=== PATIENT | female | born 2000 | race African-American/Black ===

== ENCOUNTER 2018-04-11 04:11 | Emergency (ER) | payer OTHER ==
[2018-04-11] MEDS ORDERED: Nicotine Inhaler* 10 MG AMP INH PRN (04:48)
[2018-04-11] MEDS ORDERED: LORazepam TAB(*) 1 MG PO ONE (04:49)
[2018-04-11 05:03] LABS: ABS Basophils 0 10^3/ul (0-0.2); ABS Eosinophils 0 10^3/ul (0-0.6); ABS Lymphocytes 1.2 10^3/ul (1.0-4.8); ABS Monocytes 0.3 10^3/ul (0-0.8); ABS Neutrophils 4.5 10^3/ul (1.5-7.7); ABS Nucleated RBC 0 10^3/ul; Eosinophil % 0.1 %; Hematocrit 41 % (35-47); Hemoglobin 13.3 g/dl (12.0-16.0); Lymphocyte % 20.2 %; Mean Corpuscular HGB Conc 33 g/dl (31-36); Mean Corpuscular Hemoglobin 29 pg (27-31); Mean Corpuscular Volume 89 fL (80-97); Mean Platelet Volume 8.4 fL (7.4-10.4); Nucleated Red Blood Cells % 0.1; Platelet Count 201 10^3/ul (150-450); Red Blood Count 4.56 10^6/ul (4.00-5.40); Red Cell Distribution Width 14 % (10.5-15)
[2018-04-11 05:19] LABS: EGFR Non-African American 79.6 (>60)
[2018-04-11 05:36] LABS: Urine Appearance Clear; Urine Blood 3+ (Negative); Urine Color Yellow; Urine Ketones Negative (Negative); Urine Protein Negative (Negative); Urine Red Blood Cell Trace(0-2/hpf) (Absent); Urine Urobilinogen Negative (Negative); Urine White Blood Cell 1+(6-10/hpf) (Absent)
--- NOTE | 2018-04-11 06:34 | ED ---
Psychiatric Complaint - HPI Summary HPI Summary: The pt is a 17 y.o female who is presenting to the [facility] with chief complaint of anxiety. The anxiety is reportedly exacerbated by domestic issues as per patient report. She states to the police that she was not sure if she would be able to make it through the night due to her conflict with her ex-boyfriend. She requested an escort to the [facility]. She denies SI and HI. PMHX includes depression and anxiety. She also has never been admitted to a psychiatric facility. Symptoms alleviated by nothing. - History Of Current Complaint Chief Complaint: EDMentalHealth Time Seen by Provider: 04/11/18 04:25 Hx Obtained From: Patient Aggravating Factor(s): Recent Stress Alleviating Factor(s): Nothing Related History: Positive For: Prior Psychiatric Issues - Depression and Anxiety - Allergies/Home Medications Allergies/Adverse Reactions: Allergies Allergy/AdvReac Type Severity Reaction Status Date / Time No Known Allergies Allergy Verified 04/11/18 04:27 Home Medications: Home Medications Multivitamin [Daily Multiple Vitamin] 1 each PO DAILY 04/11/18 [History Confirmed 04/11/18] Sertraline HCl [Zoloft] 100 mg PO DAILY 04/11/18 [History Confirmed 04/11/18] PMH/Surg Hx/FS Hx/Imm Hx Sensory History: Denies: Hx Legally Blind, Hx Vision Problem, Hx Deafness Opthamlomology History: Denies: Hx Legally Blind EENT History: Denies: Hx Deafness Psychiatric History: Reports: Hx Anxiety, Hx Depression Infectious Disease History: No Infectious Disease History: Denies: Traveled Outside the [place] in Last 30 Days - Family History Family History: FHx reviewed and noncontributory. - Social History Occupation: Student Lives: Dormitory/Roommates Alcohol Use: Occasionally Substance Use Type: Reports: None Smoking Status (MU): Never Smoked Tobacco Review of Systems Constitutional: Negative Eyes: Negative ENT: Negative Cardiovascular: Negative Respiratory: Negative Gastrointestinal: Negative Genitourinary: Negative Musculoskeletal: Negative Skin: Negative Neurological: Negative Psychological: Other - Negative SI and HI Positive: Anxious All Other Systems Reviewed And Are Negative: Yes Physical Exam - Summary Physical Exam Summary: GENERAL: Patient is a well-developed and nourished Female who is lying comfortable in the stretcher. Patient is not in any acute respiratory distress. Flat affect no SI or HI HEAD AND FACE: Normocephalic EYES: PERRLA, EOMI x 2. EARS: Hearing grossly intact. MOUTH: Oropharynx within normal limits. NECK: Supple, trachea is midline, no adenopathy, no JVD, no carotid bruit. CHEST: Symmetric, no tenderness at palpation LUNGS: Clear to auscultation bilaterally. No wheezing or crackles. CVS: Regular rate and rhythm, S1 and S2 present, no murmurs or gallops appreciated. ABDOMEN: Soft, non-tender. Bowel sounds are normal. No abdominal abnormal pulsations. EXTREMITIES: Full ROM in all major joints, no edema, no cyanosis or clubbing. NEURO: Alert and oriented x 3. No acute neurological deficits. Speech is normal and follows commands. SKIN: Dry and warm Triage Information Reviewed: Yes Vital Signs On Initial Exam: Initial Vitals Temp Pulse Resp BP Pulse Ox 99.4 F 82 16 113/82 99 04/11/18 04:23 04/11/18 04:23 04/11/18 04:23 04/11/18 04:23 04/11/18 04:23 Vital Signs Reviewed: Yes Diagnostics - Vital Signs Vital Signs Temp Pulse Resp BP Pulse Ox 04/11/18 04:23 99.4 F 82 16 113/82 99 - Laboratory Lab Results: Lab Results 04/11/18 04/11/18 04/11/18 Range/Units 04:52 04:52 05:22 WBC 6.0 (3.5-10.8) 10^3/ul RBC 4.56 (4.00-5.40) 10^6/ul Hgb 13.3 (12.0-16.0) g/dl Hct 41 (35-47) % MCV 89 (80-97) fL MCH 29 (27-31) pg MCHC 33 (31-36) g/dl RDW 14 (10.5-15) % Plt Count 201 (150-450) 10^3/ul MPV 8.4 (7.4-10.4) fL Neut % (Auto) 74.3 % Lymph % (Auto) 20.2 % [place] % (Auto) 4.8 % Eos % (Auto) 0.1 % Baso % (Auto) 0.6 % Absolute Neuts (auto) 4.5 (1.5-7.7) 10^3/ul Absolute Lymphs (auto) 1.2 (1.0-4.8) 10^3/ul Absolute Monos (auto) 0.3 (0-0.8) 10^3/ul Absolute Eos (auto) 0 (0-0.6) 10^3/ul Absolute Basos (auto) 0 (0-0.2) 10^3/ul Absolute Nucleated RBC 0 10^3/ul Nucleated RBC % 0.1 Sodium 137 (135-145) mmol/L Potassium 4.5 (3.5-5.0) mmol/L Chloride 107 (101-111) mmol/L Carbon Dioxide 21 L (22-32) mmol/L Anion Gap 9 (2-11) mmol/L BUN 12 (6-24) mg/dL Creatinine 0.91 (0.51-0.95) mg/dL Est GFR ( Amer) 96.4 (>60) Est GFR (Non-Af Amer) 79.6 (>60) BUN/Creatinine Ratio 13.2 (8-20) Glucose 97 (70-100) mg/dL Calcium 9.5 (8.6-10.3) mg/dL Total Bilirubin 0.50 (0.2-1.0) mg/dL AST 19 (13-39) U/L ALT 14 (7-52) U/L Alkaline Phosphatase 61 (34-104) U/L Total Protein 7.2 (6.4-8.9) g/dL Albumin 4.5 (3.2-5.2) g/dL Globulin 2.7 (2-4) g/dL Albumin/Globulin Ratio 1.7 (1-3) TSH 1.25 (0.34-5.60) mcIU/mL Beta HCG, Quant < 0.60 mIU/mL Urine Color Yellow Urine Appearance Clear Urine pH 6.0 (5-9) Ur Specific [place] 1.010 (1.010-1.030) Urine Protein Negative (Negative) Urine Ketones Negative (Negative) Urine Blood 3+ A (Negative) Urine Nitrate Negative (Negative) Urine Bilirubin Negative (Negative) Urine Urobilinogen Negative (Negative) Ur Leukocyte Esterase 2+ A (Negative) Urine WBC (Auto) 1+(6-10/hpf) A (Absent) Urine RBC (Auto) Trace(0-2/hpf) (Absent) Ur Squamous Epith Cells Present A (Absent) Urine Bacteria 1+ A (Absent) Urine Glucose Negative (Negative) Salicylates < 2.50 (<30) mg/dL Urine Opiates Screen (None Detect) Acetaminophen < 15 mcg/mL Ur Barbiturates Screen (None Detect) Ur Phencyclidine Scrn (None Detect) Ur Amphetamines Screen (None Detect) U Benzodiazepines Scrn (None Detect) Urine Cocaine Screen (None Detect) U Cannabinoids Screen (None Detect) Serum Alcohol 86 H (<10) mg/dL 04/11/18 Range/Units 05:22 WBC (3.5-10.8) 10^3/ul RBC (4.00-5.40) 10^6/ul Hgb (12.0-16.0) g/dl Hct (35-47) % MCV (80-97) fL MCH (27-31) pg MCHC (31-36) g/dl RDW (10.5-15) % Plt Count (150-450) 10^3/ul MPV (7.4-10.4) fL Neut % (Auto) % Lymph % (Auto) % [place] % (Auto) % Eos % (Auto) % Baso % (Auto) % Absolute Neuts (auto) (1.5-7.7) 10^3/ul Absolute Lymphs (auto) (1.0-4.8) 10^3/ul Absolute Monos (auto) (0-0.8) 10^3/ul Absolute Eos (auto) (0-0.6) 10^3/ul Absolute Basos (auto) (0-0.2) 10^3/ul Absolute Nucleated RBC 10^3/ul Nucleated RBC % Sodium (135-145) mmol/L Potassium (3.5-5.0) mmol/L Chloride (101-111) mmol/L Carbon Dioxide (22-32) mmol/L Anion Gap (2-11) mmol/L BUN (6-24) mg/dL Creatinine (0.51-0.95) mg/dL Est GFR ( Amer) (>60) Est GFR (Non-Af Amer) (>60) BUN/Creatinine Ratio (8-20) Glucose (70-100) mg/dL Calcium (8.6-10.3) mg/dL Total Bilirubin (0.2-1.0) mg/dL AST (13-39) U/L ALT (7-52) U/L Alkaline Phosphatase (34-104) U/L Total Protein (6.4-8.9) g/dL Albumin (3.2-5.2) g/dL Globulin (2-4) g/dL Albumin/Globulin Ratio (1-3) TSH (0.34-5.60) mcIU/mL Beta HCG, Quant mIU/mL Urine Color Urine Appearance Urine pH (5-9) Ur Specific [place] (1.010-1.030) Urine Protein (Negative) Urine Ketones (Negative) Urine Blood (Negative) Urine Nitrate (Negative) Urine Bilirubin (Negative) Urine Urobilinogen (Negative) Ur Leukocyte Esterase (Negative) Urine WBC (Auto) (Absent) Urine RBC (Auto) (Absent) Ur Squamous Epith Cells (Absent) Urine Bacteria (Absent) Urine Glucose (Negative) Salicylates (<30) mg/dL Urine Opiates Screen None detected (None Detect) Acetaminophen mcg/mL Ur Barbiturates Screen None detected (None Detect) Ur Phencyclidine Scrn None detected (None Detect) Ur Amphetamines Screen None detected (None Detect) U Benzodiazepines Scrn None detected (None Detect) Urine Cocaine Screen None detected (None Detect) U Cannabinoids Screen None detected (None Detect) Serum Alcohol (<10) mg/dL Result Diagrams: 04/11/18 04:52 04/11/18 04:52 Lab Statement: Any lab studies that have been ordered have been reviewed, and results considered in the medical decision making process. Course/Dx - Course Course Of Treatment: The pt is a 17 y.o female who is presenting to the [facility] with a chief complaint of anxiety that has been excaberated by recent stress. The pt will be signed out to Dr. Burciaga pending mental health evaluation. Work is remarkable with denial of SI and HI. The patient recieved a MHE. The dx will be adjustent disorder as per color maker. The pt will be discharged Home by MHE. - Differential Dx/Clinical Impression Provider Diagnosis: Adjustment disorder Discharge - Sign-Out/Discharge Documenting (check all that apply): Patient Departure - Discharge Plan Condition: Stable Disposition: HOME Referrals: [facility] [Outside] - If Needed (Contact the [place] police if you feel that you need to seek guidance on how to handle the situation that is currently occurring.) [facility] [Outside] - 04/19/18 (Call to see if possible to move the appointment up sooner since the situation caused you distress to where you were seen by mental health.) No Primary Care Phys,NOPCP [Primary Care Provider] - - Attestation Statements Document Initiated by Scribe: Yes Documenting Scribe: Valentin Davis Provider For Whom Scribe is Documenting (Include Credential): Dr. Vicki Shepard Scribleopoldo Attestation: I, Valentin Davis, scribed for Dr. Vicki Shepard on 04/11/18 at 0744. Status of Scribe Document: Ready
[2018-04-11] MEDS ORDERED: Mouth Piece, Nicotine* 1 EACH CARTRIDGE INH ONE (07:00)
--- NOTE | 2018-04-11 07:33 | ED ---
Progress - Progress Note Progress Note: 0730 - The pt is stable and in no acute distress. VITAL SIGNS: Reviewed. GENERAL: Patient is a well-developed and nourished female who is lying comfortable in the stretcher. Patient is not in any acute respiratory distress. HEAD AND FACE: No signs of trauma. No ecchymosis, hematomas or skull depressions. No sinus tenderness. EYES: PERRLA, EOMI x 2, No injected conjunctiva, no nystagmus. EARS: Hearing grossly intact. Ear canals and tympanic membranes are within normal limits. MOUTH: Oropharynx within normal limits. NECK: Supple, trachea is midline, no adenopathy, no JVD, no carotid bruit, no c- spine tenderness, neck with full ROM. CHEST: Symmetric, no tenderness at palpation LUNGS: Clear to auscultation bilaterally. No wheezing or crackles. CVS: Regular rate and rhythm, S1 and S2 present, no murmurs or gallops appreciated. ABDOMEN: Soft, non-tender. No signs of distention. No rebound no guarding, and no masses palpated. Bowel sounds are normal. EXTREMITIES: FROM in all major joints, no edema, no cyanosis or clubbing. NEURO: Alert and oriented x 3. No acute neurological deficits. Speech is normal and follows commands. SKIN: Dry and warm Course/Dx - Course Course Of Treatment: The pt is a 17 y/o F signed out from Dr. Shepard. She is stable and in no acute distress as a mental health evaluation is pending. - Diagnoses Provider Diagnoses: Anxiety Discharge - Discharge Plan Condition: Stable Referrals: [facility] [Outside] - If Needed (Contact the [place] police if you feel that you need to seek guidance on how to handle the situation that is currently occurring.) [facility] [Outside] - 04/19/18 (Call to see if possible to move the appointment up sooner since the situation caused you distress to where you were seen by mental health.) No Primary Care Phys,NOPCP [Primary Care Provider] - - Attestation Statements Document Initiated by Scribe: Yes Documenting Scribe: Tracy Fair Provider For Whom Marjorieibleopoldo is Documenting (Include Credential): Teodoro Burciaga MD. Scribe Attestation: I, Tracy Fair, [email or web address] for Teodoro Burciaga MD. on 04/11/18 at 0732. Status of Scribe Document: Ready
[2018-04-11 08:17] VITALS: BP 0/0
== END 2018-04-11 08:16 | disposition home or self-care (01) ==
LOC: ED 04:11
DX: F43.20 Adjustment disorder, unspecified (principal); F41.9 Anxiety disorder, unspecified
CPT/HCPCS: 36415; 80053; 80307; 80320; 80329; 81003; 81015; 84443; 84702; 85025; 87086; 99284; G0480